=== PATIENT | female | born 1985 | race American Indian/Alaskan Native ===

== ENCOUNTER 2021-09-25 08:31 | Emergency (ER) | payer OTHER ==
[2021-09-25 09:01] VITALS: BP 113/62
[2021-09-25] MEDS ORDERED: dexAMETHasone 4 MG/ML VIAL IM ONE (10:16)
[2021-09-25] MEDS ORDERED: IBUPROFEN 800 MG TAB PO ONE (10:16)
--- NOTE | 2021-09-25 10:16 | Emergency Department Report ---
Minor Respiratory - HPI Chief Complaint: Earache Stated Complaint: RT EAR/FACIAL/EYE PAIN Time Seen by Provider: 09/25/21 10:11 Duration: 5 Days Pain Location: Facial, Throat, Nose, Ear Severity: mild Minor Respiratory: Yes Rhinorrhea, Yes Sore Throat, Yes Able to Tolerate Fluids, Yes Ear Pain, Yes Cough, Yes Fever, No Sick Contacts, No Hemoptysis, No Chest Pain, No Shortness of Breath Other History: Patient is a 36-year-old female that comes to the ER with runny eyes, runny nose, sore throat, ear pain and a cough. She did see her primary care they started her on amoxicillin and cough medicine. She states the symptoms of gotten worse even though she is only been on them for 24 hours. She does have a low-grade fever in triage. She states this is new. She is mildly tachycardic. She is immunized for COVID. She did not get a flu shot last year. ED Review of Systems ROS: Stated complaint: RT EAR/FACIAL/EYE PAIN Other details as noted in HPI Comment: All other systems reviewed and negative ED Past Medical Hx - Past Medical History Previous Medical History?: No - Surgical History Past Surgical History?: No - Family History Family history: no significant - Social History Smoking Status: Never Smoker Substance Use Type: None - Medications Home Medications: Home Medications Medication Instructions Recorded Confirmed Last Taken Type Amoxicillin/K Clav Tab [Augmentin 1 tab PO Q12HR #20 tab 09/25/21 Unknown Rx 875 mg] Benzonatate [Tessalon Perles] 100 mg PO BID PRN #20 capsule 09/25/21 Unknown Rx Cetirizine HCl [ZyrTEC] 10 mg PO DAILY #30 capsule 09/25/21 Unknown Rx Fluticasone [Flonase] 1 spray NS QDAY #1 bottle 09/25/21 Unknown Rx predniSONE [Deltasone] 20 mg PO DAILY #5 tablet 09/25/21 Unknown Rx Minor Respiratory Exam - Exam General: Vital signs noted. No distress. Alert and acting appropriately. HEENT: Yes Pharyngeal Erythema, Yes Moist Mucous Membranes, Yes Rhinorrhea, Yes Frontal Tenderness, Yes Maxillary Tenderness, No Pharyngeal Exudates, No Conjuctival Injection Ear: Both TM Erythema, Neither TM Bulge, Neither EAC Pain, Neither EAC Discharge Neck: Yes Supple, No Adenopathy Lungs: Yes Good Air Exchange, No Wheezes, No Ronchi, No Stridor, No Cough, No Labored Respirations, No Retractions, No Use of Accessory Muscles, No Other Abnormal Lung Sounds Heart: Yes Regular, No Murmur Abdomen: Yes Normal Bowel Sounds, No Tenderness, No Peritoneal Signs Skin: No Rash, No Edema Neurologic: Alert and oriented, no deficits. Musculoskeletal: Unremarkable. ED Course Vital Signs 09/25/21 08:57 Temperature 99.7 F H Pulse Rate 107 H Respiratory 16 Rate Blood Pressure 113/62 O2 Sat by Pulse 100 Oximetry ED Medical Decision Making - Medical Decision Making Vital Signs 09/25/21 08:57 Temperature 99.7 F H Pulse Rate 107 H Respiratory 16 Rate Blood Pressure 113/62 O2 Sat by Pulse 100 Oximetry Medicated with Decadron, Motrin and changed to Augmentin in the ER today. Patient taking p.o. without difficulty. Note patient is immunized x2 for COVID. She has no purulent sputum. Patient being discharged home with discharge plan of care including diet, activity, medications and follow-up. She verbalizes understanding of plan of care - Differential Diagnosis URI Critical care attestation.: If time is entered above; I have spent that time in minutes in the direct care of this critically ill patient, excluding procedure time. ED Disposition Clinical Impression: Sinusitis Qualifiers: Sinusitis location: frontal Chronicity: acute Recurrence: non-recurrent Qualified Code(s): J01.10 - Acute frontal sinusitis, unspecified Pharyngitis Qualifiers: Pharyngitis/tonsillitis etiology: unspecified etiology Qualified Code(s): J02.9 - Acute pharyngitis, unspecified Disposition: 01 HOME / SELF CARE / HOMELESS Is pt being admited?: No Does the pt Need Aspirin: No Condition: Stable Instructions: Sinusitis, Adult, [id number] Additional Instructions: stop amox. start augment. and take for 10 days stay well hydrated wtih water motrin or tylenol for pain meds as ordered today follow up with pcp next week to be sure you are getting better referral to local pcp below Prescriptions: Amoxicillin/K Clav Tab [Augmentin 875 mg] 1 tab PO Q12HR #20 tab predniSONE [Deltasone] 20 mg PO DAILY #5 tablet Fluticasone [Flonase] 1 spray NS QDAY #1 bottle Benzonatate [Tessalon Perles] 100 mg PO BID PRN #20 capsule PRN Reason: Cough Cetirizine HCl [ZyrTEC] 10 mg PO DAILY #30 capsule Referrals: ALEXY SAGE MD [Staff Physician] - 3-5 Days Forms: Work/School Release Form(ED) Time of Disposition: 10:20
[2021-09-25] MEDS ORDERED: dexAMETHasone 4 MG/ML VIAL IM NR (15:00)
[2021-09-25] MEDS ORDERED: IBUPROFEN 800 MG TAB PO NR (15:00)
== END 2021-09-25 12:00 | disposition home or self-care (01) ==
LOC: ED 08:31
DX: J01.90 Acute sinusitis, unspecified (principal); J02.9 Acute pharyngitis, unspecified
CPT/HCPCS: 99282; J1100